=== PATIENT | female | born 1960 | race African-American/Black ===

== ENCOUNTER 2017-09-07 15:44 | Inpatient (IN) | payer OTHER, MEDICAID ==
[~2017-09-07] VITALS: Ht 175.3 cm; Wt 204.1 kg
[~2017-09-07 15:44] MED LIST: ATENOLOL100 MG PO; CIPRO500 MG PO; DULERA 100 MCG/13 GM IH; IBUPROFEN800 MG ORAL; METFORMIN HCL500 MG PO; NORCO 5-325 TA1 EACH ORAL; QUETIAPINE FUM100 MG ORAL; VENTOLIN HFA18 GM IH; VICODIN 5-5001 EACH PO
[2017-09-07] MEDS ORDERED: TERBINAFINE HC250 MG PO (15:50)
[2017-09-07] MEDS ORDERED: FLOVENT2 PUFF1 INH (15:50)
[2017-09-07] MEDS ORDERED: CATAPRES0.1 MG ORAL (15:50)
--- NOTE | 2017-09-07 15:53 | Emergency Room Report ---
History of Present Illness General Chief Complaint: Chest pain Source: Patient Present Illness HPI Patient is a 57-year-old female presented after increased blood pressure and associated shortness of breath. Patient reported having prior history of hypertension for which she takes clonidine and atenolol. Patient reported having taken additional dose of her medications. Allergies: Coded Allergies: PENICILLINS (Verified Allergy, Severe, ITCHY, 04/25/12) Patient History Past Medical History: see triage record Reviewed Nursing Documentation: PMH: Agreed, PSxH: Agreed Nursing Documentation-PMH Hx Cardiac Problems: Yes Hx Hypertension: Yes Hx Asthma: Yes Hx COPD: Yes Hx Diabetes: Yes Hx Cancer: No Hx Gastrointestinal Problems: No Hx Weakness: Yes - BILAT LOWER EXTS Review of Systems All Other Systems: negative except mentioned in HPI Physical Exam Sp02 EP Interpretation: reviewed, normal General Appearance: normal inspection, well appearing, no apparent distress, alert, GCS 15, non-toxic, obese, Chronically Ill Head: atraumatic ENT: normal ENT inspection, hearing grossly normal, normal voice Neck: normal inspection, full range of motion, supple, no bony tend Respiratory: normal inspection, lungs clear, no retraction, no wheezing Cardiovascular #1: regular rate, rhythm, edema Gastrointestinal: normal inspection, soft, no guarding, hernia - ventral hernia Genitourinary: no CVA tenderness, other - left labial swelling without definite absces Musculoskeletal: normal inspection, back normal, normal range of motion Neurologic: normal inspection, alert, responsive, speech normal Psychiatric: normal inspection, judgement/insight normal, mood/affect normal Medical Decision Making Diagnostic Impression: Primary Impression: Chest pain Additional Impressions: Uncontrolled hypertension Labial cyst ACS (acute coronary syndrome) ER Course Patient presented for chest pain. Because of complexity of patient's case laboratory testing and imaging studies were ordered. Differential diagnosis included but was not limited to acute coronary syndrome, pulmonary embolism, pneumonia, aortic dissection, shingles, pneumothorax, aortic dissection, esophageal rupture, pericarditis. EKG interpreted by me showed sinus tachycardia with a rate of [address] or T wave changes.Patient was noted to have some pain to her left labial area which appears to be mildly swollen.. Patient was noted to have chronic abdominal hernia. Dr. Leonidas Hughes was contacted for inpatient management. Labs Test 09/07/17 16:00 09/07/17 16:10 White Blood Count 7.5 K/UL (4.8-10.8) Red Blood Count 4.66 M/UL (4.20-5.40) Hemoglobin 13.8 G/DL (12.0-16.0) Hematocrit 42.4 % (37.0-47.0) Mean Corpuscular Volume 91 FL (80-99) Mean Corpuscular Hemoglobin 29.5 PG (27.0-31.0) Mean Corpuscular Hemoglobin Concent 32.5 G/DL (32.0-36.0) Red Cell Distribution Width 13.4 % (11.6-14.8) Platelet Count 184 K/UL (150-450) Mean Platelet Volume 9.0 FL (6.5-10.1) Neutrophils (%) (Auto) 72.8 % (45.0-75.0) Lymphocytes (%) (Auto) 22.5 % (20.0-45.0) Monocytes (%) (Auto) 2.9 % (1.0-10.0) Eosinophils (%) (Auto) 0.8 % (0.0-3.0) Basophils (%) (Auto) 1.0 % (0.0-2.0) Prothrombin Time 9.9 SEC (9.30-11.50) Prothromb Time International Ratio 0.9 (0.9-1.1) Activated Partial Thromboplast Time 21 SEC (23-33) Sodium Level 141 MMOL/L (136-145) Potassium Level 3.8 MMOL/L (3.5-5.1) Chloride Level 103 MMOL/L (98-107) Carbon Dioxide Level 33 MMOL/L (21-32) Anion Gap 5 mmol/L (5-15) Blood Urea Nitrogen 9 mg/dL (7-18) Creatinine 0.7 MG/DL (0.55-1.30) Estimat Glomerular Filtration Rate > 60 mL/min (>60) Glucose Level 224 MG/DL (74-106) Calcium Level 9.5 MG/DL (8.5-10.1) Total Bilirubin 0.4 MG/DL (0.2-1.0) Aspartate Amino Transf (AST/SGOT) 23 U/L (15-37) Alanine Aminotransferase (ALT/SGPT) 28 U/L (12-78) Alkaline Phosphatase 130 U/L (46-116) Troponin I 0.000 ng/mL (0.000-0.056) Total Protein 7.8 G/DL (6.4-8.2) Albumin 3.3 G/DL (3.4-5.0) Globulin 4.5 g/dL Albumin/Globulin Ratio 0.7 (1.0-2.7) Urine Color Pale yellow Urine Appearance Slightly cloudy Urine pH 8 (4.5-8.0) Urine Specific [place] 1.010 (1.005-1.035) Urine Protein 2+ (NEGATIVE) Urine Glucose (UA) Negative (NEGATIVE) Urine Ketones Negative (NEGATIVE) Urine Occult Blood 2+ (NEGATIVE) Urine Nitrite Negative (NEGATIVE) Urine Bilirubin Negative (NEGATIVE) Urine Urobilinogen Normal MG/DL (0.0-1.0) Urine Leukocyte Esterase 2+ (NEGATIVE) Urine RBC 2-4 /HPF (0 - 2) Urine WBC 5-10 /HPF (0 - 2) Urine Squamous Epithelial Cells Few /LPF (NONE/OCC) Urine Amorphous Sediment Few /LPF (NONE) Urine Bacteria Many /HPF (NONE) EKG Diagnostic Results Rate: tachycardiac - 116 Rhythm: NSR ST Segments: no acute changes Rhythm Strip Diag. Results EP Interpretation: yes Rhythm: NSR, no PVC's, no ectopy Status: unchanged Disposition: ADMITTED INPATIENT Condition: Colin Gamino Sep 07, 2017 15:53
[2017-09-07] MEDS ORDERED: Norco 5mg/325mg tab ORAL ONE (16:00)
[2017-09-07 16:29] LABS: EOSINOPHILS % (AUTO) 0.8 % (0.0-3.0); HEMATOCRIT 42.4 % (37.0-47.0); HEMOGLOBIN 13.8 G/DL (12.0-16.0); LYMPHOCYTES % (AUTO) 22.5 % (20.0-45.0); MEAN CORPUSCULAR VOLUME 91 FL (80-99); MONOCYTES % (AUTO) 2.9 % (1.0-10.0); NEUTROPHILS % (AUTO) 72.8 % (45.0-75.0); PLATELET COUNT 184 K/UL (150-450); RED BLOOD COUNT 4.66 M/UL (4.20-5.40); RED CELL DISTRIBUTION WIDTH 13.4 % (11.6-14.8); WHITE BLOOD COUNT 7.5 K/UL (4.8-10.8)
[2017-09-07 16:33] VITALS: BP 160/107
[2017-09-07 16:50] LABS: INR 0.9 (0.9-1.1)
[2017-09-07 16:56] LABS: APPEARANCE,URINE SLIGHTLY CLOUDY; BILIRUBIN, URINE NEGATIVE (NEGATIVE); COLOR,URINE PALE YELLOW; GLUCOSE, URINE (UA) NEGATIVE (NEGATIVE); KETONES,URINE NEGATIVE (NEGATIVE); LEUKOCYTE ESTERASE ,URINE 2+ (NEGATIVE); NITRITE,URINE NEGATIVE (NEGATIVE); PH,URINE 8 (4.5-8.0); PROTEIN,URINE 2+ (NEGATIVE); UROBILINOGEN,URINE NORMAL MG/DL (0.0-1.0)
[2017-09-07 17:02] LABS: ANION GAP 5 mmol/L (5-15); BLOOD UREA NITROGEN 9 mg/dL (7-18); CALCIUM 9.5 MG/DL (8.5-10.1); CARBON DIOXIDE 33 MMOL/L (21-32); CHLORIDE 103 MMOL/L (98-107); CREATININE 0.7 MG/DL (0.55-1.30); POTASSIUM 3.8 MMOL/L (3.5-5.1); SODIUM 141 MMOL/L (136-145)
[2017-09-07 17:09] LABS: ALANINE AMINOTRANSFERASE 28 U/L (12-78); ALBUMIN 3.3 G/DL (3.4-5.0); ALBUMIN/GLOBULIN RATIO 0.7 (1.0-2.7); ALKALINE PHOSPHATASE 130 U/L (46-116); ASPARTATE AMINO TRANSFERASE 23 U/L (15-37); BILIRUBIN,TOTAL 0.4 MG/DL (0.2-1.0)
[2017-09-07] MEDS ORDERED: PROAIR HFA8.5 GM INH (17:28)
[2017-09-07] MEDS ORDERED: AZO URINARY P97.5 MG PO (17:31)
[2017-09-07 17:39] VITALS: BP 158/91
[2017-09-07] MEDS ORDERED: TRIAMCINOLONE A80 GM TP (17:43)
[2017-09-07] MEDS ORDERED: NORCO 10-325 T1 EACH ORAL (17:45)
[2017-09-07] MEDS ORDERED: Aspirin Baby 81mg ORAL ONE (19:00)
[2017-09-07 19:33] VITALS: BP 135/77
[2017-09-07 20:46] VITALS: BP 157/99
[2017-09-07 22:17] VITALS: BP 166/96
[2017-09-07] MEDS ORDERED: Morphine Sulfate 2mg/ml Inj IVP ONE (23:00)
[2017-09-08] VITALS: BP 146/97
[2017-09-08] MEDS ORDERED: Triamcinolone 0.025% oint TOPIC SCH (03:30)
[2017-09-08 04:00] VITALS: BP 140/78
[2017-09-08 08:00] VITALS: BP 142/90
[2017-09-08] MEDS: metFORMIN 500mg tab ORAL SCH ×2 (08:47→17:05)
[2017-09-08] MEDS: Aspirin Baby 81mg ORAL SCH (08:47)
[2017-09-08 09:20] LABS: ALANINE AMINOTRANSFERASE 31 U/L (12-78); ALBUMIN 3.4 G/DL (3.4-5.0); ALBUMIN/GLOBULIN RATIO 0.8 (1.0-2.7); ALKALINE PHOSPHATASE 143 U/L (46-116); ANION GAP 8 mmol/L (5-15); ASPARTATE AMINO TRANSFERASE 18 U/L (15-37); BILIRUBIN,TOTAL 0.3 MG/DL (0.2-1.0); BLOOD UREA NITROGEN 15 mg/dL (7-18); CALCIUM 9.6 MG/DL (8.5-10.1); CARBON DIOXIDE 31 MMOL/L (21-32); CHLORIDE 102 MMOL/L (98-107); CHOLESTEROL 190 MG/DL (< 200); CREATININE 0.9 MG/DL (0.55-1.30); HDL CHOLESTEROL 75 MG/DL (40-60); POTASSIUM 4.1 MMOL/L (3.5-5.1); SODIUM 141 MMOL/L (136-145); TRIGLYCERIDES 99 MG/DL (30-150)
[2017-09-08 09:26] LABS: BASOPHILS % (AUTO) 1.2 % (0.0-2.0); EOSINOPHILS % (AUTO) 0.9 % (0.0-3.0); HEMOGLOBIN 13.6 G/DL (12.0-16.0); LYMPHOCYTES % (AUTO) 35.5 % (20.0-45.0); MEAN CORPUSCULAR VOLUME 93 FL (80-99); MONOCYTES % (AUTO) 4.3 % (1.0-10.0); NEUTROPHILS % (AUTO) 58.1 % (45.0-75.0); PLATELET COUNT 219 K/UL (150-450); RED BLOOD COUNT 4.73 M/UL (4.20-5.40); RED CELL DISTRIBUTION WIDTH 13.8 % (11.6-14.8); WHITE BLOOD COUNT 9.1 K/UL (4.8-10.8)
--- NOTE | 2017-09-08 10:17 | Diagnostic Imaging Report ---
Indication: Shortness of breath Technique: XRAY Chest 1v Comparison: 02/21/2014 Findings: There is poor penetration and inspiration limiting evaluation. Cardiac silhouette is grossly stable. Mild central pulmonary vascular congestion is seen. There is no gross consolidation or pleural effusion. Osseous structures are grossly stable. Impression: Poor penetration and inspiration limiting evaluation. Bronchovascular crowding with mild pulmonary congestion not excluded. Follow-up recommended.
[2017-09-08] MEDS: HYDROcodone/Acetamin 10/325 tab ORAL PRN ×2 (10:39→22:17)
[2017-09-08] MEDS: NovoLOG Insulin Flexpen SUBQ SCH ×3 (11:40→22:21)
[2017-09-08] MEDS: Flovent 44mcg Inhaler 10.6gm INH SCH ×2 (15:50→18:00)
[2017-09-08 16:00] VITALS: BP 144/88
--- NOTE | 2017-09-08 16:09 | Cardiology Report ---
APPROVED REPORT EKG Measurement Heart [id number] Sinus tachycardia RV conduction delay Abnormal ECG
[2017-09-08] MEDS: Heparin 5000 units/ml inj SUBQ SCH ×2 (16:22→22:21)
[2017-09-08 20:00] VITALS: BP 135/74
--- NOTE | 2017-09-08 20:00 | History and Physical Report ---
DATE OF ADMISSION: 09/07/2017 REASON FOR ADMISSION: Possible acute coronary syndrome. HISTORY OF PRESENT ILLNESS: This 57-year-old female presents with elevated blood pressure and shortness of breath. The patient with history of hypertension in the past. The patient presents for evaluation and recommendations. The patient with now admission for possible acute coronary syndrome and uncontrolled hypertension. PAST MEDICAL HISTORY: Notable for the history of heart disease although unclear, hypertension, possible AL, COPD, and diabetes. MEDICATIONS: Reviewed. ALLERGIES: Reviewed. PHYSICAL EXAMINATION: GENERAL: A well-developed female, comfortable at present. VITAL SIGNS: Reviewed. Blood pressure 142/90, otherwise stable. LUNGS: With moderate breath sounds. No rhonchi or wheezes. CARDIAC: S1 and S2. Regular rate and rhythm. ABDOMEN: Soft and nontender. EXTREMITIES: No edema. IMPRESSION: 1. Possible acute coronary syndrome. 2. Hypertension. RECOMMENDATION: Supportive care. Monitor clinically. Cardiac evaluation. Pain control and serial troponins. Blood pressure support and if stable, we will proceed with discharge planning. Leonidas Hughes M.D. DR: Luis JOB#: [id number] CC:
--- NOTE | 2017-09-09 03:45 | Progress Note ---
DATE: 09/08/2017 CARDIOLOGY PROGRESS NOTE SUBJECTIVE: The patient has no chest pain. She still feels a fullness in her abdominal and lower chest cavities however and notes this is consistent with her hiatal hernia. She has no shortness of breath. Today, her troponin levels have been negative. OBJECTIVE: VITAL SIGNS: Blood pressure 135/74, pulse 79, respiratory rate 20, and afebrile. Morbidly obese. LUNGS: Diminished breath sounds. No chest wall tenderness. CARDIAC: Regular rate with normal S1, S2. No murmur. ABDOMEN: Soft. EXTREMITIES: Without pitting edema. LABORATORY AND DIAGNOSTIC DATA: Echocardiogram with normal ejection fraction. White count 9. LDL is 102, HDL 75. Glucose 224. IMPRESSION: 1. Noncardiac chest pain, likely gastrointestinal related symptoms. 2. Morbid obesity. 3. Type 2 diabetes mellitus. 4. Accelerated hypertension, now controlled. PLAN: 1. Continue titration of antihypertensives. 2. Optimize glucose control. 3. DVT prophylaxis. 4. Antiplatelet therapy. The patient is unable to undergo any diagnostic stress testing due to her severe obesity. Rafi Singh M.D. DR: CHRISTIANO JOB#: [id number] CC:
[2017-09-09 04:00] VITALS: BP 126/64
--- NOTE | 2017-09-09 04:00 | Consultation ---
DATE OF CONSULTATION: 09/07/2017 CARDIOLOGY CONSULTATION CONSULTING PHYSICIAN: Rafi Singh M.D. REQUESTING PHYSICIAN: Leonidas Hughes M.D. REASON FOR CONSULTATION: Chest pain. HISTORY OF PRESENT ILLNESS: This is a 57-year-old morbidly obese female. She noted increased blood pressure readings today despite compliance with her usual medications. She took extra doses of her clonidine and atenolol as well. She noted some shortness of breath and came to the emergency room. She did not have chest pain. In the emergency room, EKG revealed low voltage, sinus rhythm, and no acute pathology. Troponin #1 was negative. PAST MEDICAL HISTORY: She has asthma, chronic obstructive pulmonary disease, type 2 diabetes mellitus, and hiatal hernia. MEDICATIONS: Prior to admission, reviewed and reconciled. ALLERGIES: Penicillin. SOCIAL HISTORY: Nonsmoker. No alcohol or substance abuse. REVIEW OF SYSTEMS: She complains of a boil in her left groin area. There is no history of thyroid disorder. There is no history of seizure or stroke. She has not had any increased reflux symptoms, but does have chronic discomfort due to hiatal hernia. She notes compliance with her medications and no usual blood pressure irregularities. She has not had any wheezing, shortness of breath, or recent upper respiratory infection. PHYSICAL EXAMINATION: GENERAL: Morbidly obese. VITAL SIGNS: Blood pressure is 160/107, pulse 90, respiratory rate 22, afebrile, and oxygen saturation 96% on two liters. HEENT: Conjunctivae are pink. Oropharynx is clear. NECK: Obese. LUNGS: Diminished breath sounds. CHEST WALL: With pendulous breasts. No focal tenderness. CARDIAC: Regular rhythm and rate. Distant S1 and S2. No murmur, rub, or gallop. ABDOMEN: Obese and no focal tenderness. EXTREMITIES: With trace edema. NEUROLOGIC: Revealed no focal deficits. DIAGNOSTIC DATA: EKG, sinus rhythm, low voltage, no acute change. Troponin negative. IMPRESSION: 1. Accelerated hypertension. 2. Chest pain, likely due to gastrointestinal pathology, probably related to her hiatal hernia. 3. Morbid obesity. PLAN: 1. Cardiac monitoring. 2. Antiplatelet therapy with aspirin. 3. Venous Duplex to assess for source of pulmonary emboli. 4. DVT prophylaxis. 5. Anti-reflux measures and proton-pump inhibitor. 6. Titration of antihypertensive regimen for optimal blood pressure control. The patient's body habitus and weight stress test to be successfully performed at this time. Rafi Singh M.D. DR: Nba JOB#: [id number] CC:
[2017-09-09] MEDS: NovoLOG Insulin Flexpen SUBQ SCH ×3 (06:08→16:30)
[2017-09-09] MEDS: Heparin 5000 units/ml inj SUBQ SCH ×2 (06:09→14:06)
[2017-09-09 08:00] VITALS: BP 154/71
[2017-09-09] MEDS: Aspirin Baby 81mg ORAL SCH (09:12)
[2017-09-09] MEDS: metFORMIN 500mg tab ORAL SCH (09:12)
--- NOTE | 2017-09-09 09:31 | Wound Nurse Progress Note ---
Wound RN Progress Note Wound Consult follow MD orders recommendation for vaginal area. not pressure ulcer , no further recommendations CHAYO CHOWDHURY Sep 09, 2017 09:31
[2017-09-09] MEDS: HYDROcodone/Acetamin 10/325 tab ORAL PRN (11:01)
--- NOTE | 2017-09-09 11:35 | General Progress Note ---
Assessment/Plan Assessment/Plan hypertension obesity hypercapnia PLAN dc home cleared by cards aspirin at home not an oxygen candidate sleep study recommended after dc no further needs by wound care nurse Subjective Allergies: Coded Allergies: PENICILLINS (Verified Allergy, Severe, ITCHY, 04/25/12) Subjective cleared by cards no oxygen indicated Objective Last 24 Hour Vital Signs Date Time Temp Pulse Resp B/P (MAP) Pulse Ox O2 Delivery O2 Flow Rate FiO2 09/09/17 11:01 98.1 09/09/17 09:12 91 154/71 09/09/17 08:49 Nasal Cannula 2.0 09/09/17 08:48 98 Nasal Cannula 2.0 09/09/17 08:00 98.1 91 20 154/71 94 Nasal Cannula 2.0 98.1 09/09/17 04:00 97.2 84 20 126/64 96 Nasal Cannula 2.0 97.2 09/08/17 23:59 99 Nasal Cannula 4.0 36 09/08/17 23:59 Nasal Cannula 4.0 36 09/08/17 21:00 118/68 09/08/17 20:00 97.5 79 20 135/74 94 Nasal Cannula 2.0 97.5 09/08/17 19:02 Nasal Cannula 4.0 36 09/08/17 19:02 Nasal Cannula 4.0 36 09/08/17 16:00 97.7 73 18 144/88 98 Nasal Cannula 2.0 97.7 09/08/17 15:54 80 09/08/17 11:47 67 09/08/17 11:38 97.7 Intake and Output 09/08/17 09/09/17 19:00 07:00 Intake Total 580 ml 200 ml Balance 580 ml 200 ml Intake Oral 580 ml 200 ml # Voids 3 Laboratory Tests 09/09/17 11:05: Arterial Blood pH 7.330L, Arterial Blood Partial Pressure CO2 63.1*H, Arterial Blood Partial Pressure O2 91.6, Arterial Blood HCO3 33.2H, Arterial Blood Oxygen Saturation 96.8, Arterial Blood Base Excess 5.6, Ha Test Positive Height (Feet): 5 Height (Inches): 9.00 Weight (Pounds): 450 Objective WDWN NAD clear breath sounds bilaterally without rhonchi or wheeze [id number] without MRG NABS nontender no HSM no CC edema obese nonfocal ISHAAYA,SHILO Sep 09, 2017 11:35
[2017-09-09] MEDS: Flovent 44mcg Inhaler 10.6gm INH SCH (11:36)
[2017-09-09 12:00] VITALS: BP 150/84
[2017-09-09] MEDS ORDERED: Triamcinolone 0.025% oint TOPIC SCH (14:00)
[2017-09-09] MEDS ORDERED: ASPIR-LOW81 MG ORAL (14:30)
[2017-09-09] MEDS ORDERED: Tubing IV Secondary IV ONE (16:57)
--- NOTE | 2017-09-10 03:45 | Progress Note ---
DATE: 09/09/2017 CARDIOLOGY PROGRESS NOTE SUBJECTIVE: No new complaints. Fullness in the chest at times, not associated with activity, consistent with prior discomfort due to hiatal hernia. OBJECTIVE: VITAL SIGNS: Blood pressure 154/71 is the maximal blood pressure with heart rate 91 and respiratory rate 20. LUNGS: Diminished breath sounds. HEART: Regular rhythm and rate. Distant S1 and S2. ABDOMEN: Morbidly obese. EXTREMITIES: Without pitting edema. IMPRESSION: 1. Hypertension. 2. Morbid obesity. 3. Chronic hypercapnia. PLAN: 1. Unable to do any diagnostic stress testing due to body habitus. 2. Would continue aspirin prophylaxis long-term. 3. Weight loss efforts are discussed. 4. Maintain current antihypertensive regimen. 5. The patient is at risk for DVT and is advised to maintain adequate mobilization at home. Rafi Singh M.D. DR: JONAS JOB#: [id number] CC:
[2017-09-10] MEDS ORDERED: Flovent 44mcg Inhaler 10.6gm INH SCH (10:00)
--- NOTE | 2017-09-11 15:12 | Discharge Summary ---
Discharge Summary Hospital Course Date of Admission Sep 07, 2017 at 22:08 Date of Discharge Sep 09, 2017 at 16:58 Admitting Diagnosis chest pain, acs, uncontrolled hypertension HPI Leonor Real is a 57 year old female who was admitted on Sep 07, 2017 at 22:08 for Chest Pain,Acute Coronary Syndrome,Uncontrolled Hospital Course dc summary #[id number] Discharge Discharge Disposition Patient was discharged to Home (01) Discharge Diagnoses: Discharge Instructions Discharge Instructions Special Instructions I have been assigned to complete a D/C Summary on this account. I was not involved in the patient management Angelica Nunn NP ([place]) Sep 11, 2017 15:12
--- NOTE | 2017-09-11 22:15 | Discharge Summary 2 SIG ---
DATE OF ADMISSION: 09/07/2017 DATE OF DISCHARGE: 09/09/2017 REASON FOR ADMISSION: 57-year-old female with past medical history significant for hypertension, asthma/COPD, obesity, osteoarthritis, diabetes mellitus, presented to emergency room for evaluation with increased blood pressure and associated shortness of breath with chest pain. Blood pressure -173/124. No leukocytosis. Stable hemoglobin and hematocrit. Troponin negative. Electrolytes stable. Renal parameters stable. EKG revealed sinus tachycardia, heart rate -116, no acute ischemic changes. The patient admitted with diagnoses of uncontrolled hypertension, chest pain, possible acute coronary syndrome. HOSPITAL COURSE: The patient admitted. Cardiology consult was requested. Serial troponin x2 were negative. Antiplatelet therapy with aspirin started. Echocardiogram revealed ejection fraction of 65%, right ventricular systolic pressure of 20. Chest x-ray initially revealed mild pulmonary congestion. ABGs revealed chronic hypercapnia. Lipid panel was stable. LDL borderline - 102. Cardiology discussed with the patient measures to lose weight. Antihypertensive medication regimen was uptitrated. Prior to discharge, blood pressure stabilized. Due to the morbid obesity, unable to do any diagnostic stress test at this time. Per Cardiology, chest pain was likely secondary to GI pathology , i.e. hiatal hernia. PPI added to medication regimen. The patient was advised that she is at risk for DVT and was advised to maintain adequate mobilization at home. Prior to discharge pulse oximetry was stable on room air. The patient was not a candidate for home O2 . Patient was recommended sleep study as an outpatient. Blood sugar was managed with sliding scale of insulin, remained stable. The patient was stable for discharge. FINAL DIAGNOSES: 1. Accelerated hypertension, resolved. 2. Chest pain, likely secondary to GI pathology( hiatal hernia) . 3. Hiatal hernia. 4. Morbid obesity. 5. Chronic hypercapnia. DISCHARGE MEDICATIONS: See medication reconciliation list. DISCHARGE INSTRUCTIONS: The patient discharged home. Follow up with primary care provider next week. Recommended outpatient sleep study. Consider stress test as outpatient Leonidas Hughes M.D. I have been assigned to dictate discharge summary on this account and I was not involved in the patient's management. Angelica Nunn N.P. ([place]tein) DR: Gumaro JOB#: [id number] CC: EVELINE
--- NOTE | 2017-09-12 21:22 | Cardiology Report ---
APPROVED REPORT EXAM: Two-dimensional and M-mode echocardiogram with Doppler and color Doppler. INDICATION Chest Pain M-Mode DIMENSIONS IVSd1.5 (0.7-1.1cm)Left Atrium (MM)3.7 (1.6-4.0cm) LVDd5.7 (3.5-5.6cm)Aortic Root3.9 (2.0-3.7cm) PWd1.3 (0.7-1.1cm)Aortic Cusp Exc.2.1 (1.5-2.0cm) IVSs1.8 cm LVDs3.5 (2.5-4.0cm) PWs2.1 cm Technically difficult study due to poor acoustical windows and pts position. . Normal left ventricular systolic function and wall motion to extent visualized. Mild left ventricular enlargements . Left ventricular ejection fraction estimated to be 65 %. Mild left ventricular hypertrophy by 2-D. No evidence of pericardial effusion. Right cardiac chamber sizes are within normal limits. Focal aortic valve sclerosis with adequate cusp excursion. Mildly Thickened mitral valve leaflets with normal excursion. Mildly Mitral annulus and aortic root calcification. Pulmonic valve not well visualized. Normal tricuspid valve structure. IVC at normal size with physiological collapse . A color flow and spectral Doppler study was performed and revealed: No aortic regurgitation. Trace mitral regurgitation. Mitral diastolic velocities suggest reduced left ventricular relaxation c/w mild LV diastolic dysfunction (Grade I ) Trace tricuspid regurgitation. Tricuspid systolic velocities suggests peak right ventricular systolic pressure of 20 mmHg No Pulmonic regurgitation present.
== END 2017-09-09 16:58 | disposition home or self-care (01) | DRG 392 ==
LOC: EMR 16:30 → EDBEDREQ 20:27 → 2E 22:08 → 4W 09-09 14:15 → 2E 09-09 16:56
DX: K44.9 Diaphragmatic hernia without obstruction or gangrene (principal); Z68.44 Body mass index [BMI] 60.0-69.9, adult; I10 Essential (primary) hypertension; E66.01 Morbid (severe) obesity due to excess calories; R07.89 Other chest pain; J44.9 Chronic obstructive pulmonary disease, unspecified; E11.9 Type 2 diabetes mellitus without complications; M19.90 Unspecified osteoarthritis, unspecified site; R06.89 Other abnormalities of breathing; Z88.0 Allergy status to penicillin
CPT/HCPCS: 36415; 36600; 71045; 80053; 80061; 81001; 82803; 82962; 84443; 84484; 85025; 85610; 85730; 87086; 87181; 93005; 93306; 94640; 94760; 99285; J1815

== ENCOUNTER 2017-11-13 21:42 | Inpatient (IN) | payer OTHER, MEDICAID ==
[~2017-11-13] VITALS: Ht 177.8 cm; Wt 229.5 kg
[~2017-11-13 21:42] MED LIST changes: +ASPIR-LOW81 MG ORAL; +AZO URINARY P97.5 MG PO; +CATAPRES0.1 MG ORAL; +FLOVENT2 PUFF1 INH; +NORCO 10-325 T1 EACH ORAL; +PROAIR HFA8.5 GM INH; +TERBINAFINE HC250 MG PO; +TRIAMCINOLONE A80 GM TP
[2017-11-13] MEDS ORDERED: Ketorolac 30mg Inj IM ONE (22:15)
[2017-11-13] MEDS ORDERED: Norco 5mg/325mg tab ORAL ONE (22:15)
[2017-11-14] VITALS (7 sets, daily range): BP systolic 121–159; BP diastolic 18–105
[2017-11-14] MEDS ORDERED: Morphine Sulfate 4mg/ml Inj IM ONE
[2017-11-14 01:29] LABS: EOSINOPHILS % (AUTO) 1.4 % (0.0-3.0); HEMATOCRIT 44.8 % (37.0-47.0); HEMOGLOBIN 13.9 G/DL (12.0-16.0); LYMPHOCYTES % (AUTO) 29.1 % (20.0-45.0); MEAN CORPUSCULAR VOLUME 90 FL (80-99); MONOCYTES % (AUTO) 2.9 % (1.0-10.0); NEUTROPHILS % (AUTO) 65.6 % (45.0-75.0); PLATELET COUNT 226 K/UL (150-450); RED BLOOD COUNT 4.98 M/UL (4.20-5.40); RED CELL DISTRIBUTION WIDTH 12.7 % (11.6-14.8); WHITE BLOOD COUNT 7.8 K/UL (4.8-10.8)
[2017-11-14 01:35] LABS: ANION GAP 9 mmol/L (5-15); BLOOD UREA NITROGEN 12 mg/dL (7-18); CALCIUM 9.5 MG/DL (8.5-10.1); CARBON DIOXIDE 31 MMOL/L (21-32); CHLORIDE 100 MMOL/L (98-107); CREATININE 0.9 MG/DL (0.55-1.30); POTASSIUM 4.7 MMOL/L (3.5-5.1); SODIUM 140 MMOL/L (136-145)
--- NOTE | 2017-11-14 03:56 | Emergency Room Report ---
History of Present Illness General Chief Complaint: Lower Extremity Injury Source: Patient Present Illness HPI 57-year-old female comes ER with left leg pain for the past 4 days reports it's a spasm type pain radiating from the buttock down her left leg for the past 4 days, she has no obvious history of trauma other than a fall about 5 months ago She reports at that time she had right-sided pain, none since She denies leg swelling, denies hemoptysis, anticoagulate and actually the pain , and now reports she is unable to walk on it because it is so severe She tried [place] with only partial relief She denies chest pain, palpitations, shortness of breath, estrogen use, recent travel Allergies: Coded Allergies: PENICILLINS (Verified Allergy, Severe, ITCHY, 04/25/12) Patient History Past Medical History: see triage record Last Menstrual Period: NA Now: No Reviewed Nursing Documentation: PMH: Agreed; PSxH: Agreed Nursing Documentation-PMH Hx Cardiac Problems: Yes Hx Hypertension: Yes Hx Asthma: Yes Hx COPD: Yes Hx Diabetes: Yes Hx Cancer: No Hx Gastrointestinal Problems: Yes - abdominal hernia Hx Neurological Problems: No Hx Weakness: Yes - BILAT LOWER EXTS Review of Systems All Other Systems: negative except mentioned in HPI Physical Exam Vital Signs Date Time Temp Pulse Resp B/P (MAP) Pulse Ox O2 Delivery O2 Flow Rate FiO2 11/13/17 21:43 98.9 88 18 142/93 92 Room Air 99.0 Sp02 EP Interpretation: reviewed, normal General Appearance: no apparent distress, alert, non-toxic Head: normocephalic Eyes: bilateral eye normal inspection, bilateral eye PERRL, bilateral eye EOMI ENT: normal ENT inspection, hearing grossly normal, normal pharynx, no angioedema, normal voice, moist mucus membranes Neck: normal inspection, full range of motion, supple, supple/symm/no masses Respiratory: chest non-tender, lungs clear, normal breath sounds, chest symmetrical, palpation of chest normal Cardiovascular #1: normal peripheral pulses, regular rate, rhythm Cardiovascular #2: 2+ radial (R), 2+ radial (L), 2+ dorsalis pedis (R), 2+ dorsalis pedis (L) Gastrointestinal: normal inspection, non tender, soft, no mass, no guarding, no rebound Rectal: deferred Genitourinary: normal inspection, no CVA tenderness Musculoskeletal: back normal, gait/station normal, normal range of motion, tender - LLE diffusely tender Neurologic: alert, responsive, treating inspector III-XII nml as tested, motor strength/tone normal, sensory intact, speech normal Psychiatric: judgement/insight normal, memory normal, mood/affect normal, no suicidal/homicidal ideation Skin: normal color, no rash, warm/dry, normal turgor Lymphatic: no adenopathy Medical Decision Making Diagnostic Impression: Primary Impression: Leg pain, left ER Course Patient had a normal x-ray of her left hip, clinical evaluation revealed just pain and tenderness everywhere, unable to rule out DVT due to body habitus, as the pain is not consistent with any obvious etiology other than possible sciatica versus DVT, I ordered a d-dimer which was elevated, and then was informed that this hospital does not perform imaging studies on patient's this large for DVT rule out due to size limitations. Therefore I have given her 1 dose of Lovenox, and we will admit her to , but he is not answered our pages were texts at the time of this dictation Last Vital Signs Date Time Temp Pulse Resp B/P (MAP) Pulse Ox O2 Delivery O2 Flow Rate FiO2 11/14/17 02:41 97.9 78 18 140/88 94 Room Air 97.9 Disposition: ADMITTED INPATIENT Condition: Stable Referrals: NON PHYSICIAN (PCP) SHELTON SAMS M.D November 14, 2017 03:56
[2017-11-14] MEDS ORDERED: Morphine Sulfate 4mg/ml Inj IVP ONE (05:00)
[2017-11-14] MEDS ORDERED: Enoxaparin 150mg Inj SUBQ SCH (09:00)
[2017-11-14] MEDS ORDERED: Aspirin Baby 81mg ORAL SCH (11:00)
[2017-11-14] MEDS: Morphine Sulfate 4mg/ml Inj IVP PRN ×2 (11:55→23:34)
[2017-11-14] MEDS: Albuterol/Ipratropium 3ml neb HHN SCH ×2 (13:00→20:26)
--- NOTE | 2017-11-14 13:08 | Diagnostic Imaging Report ---
Indication: Pain Technique: 2 views of the left hip Comparison: 07/21/2011 Findings: Evaluation is very limited due to patient body habitus. There are degenerative proliferative changes of the left hip. No definite acute fractures. No dislocations. Impression: Degenerative changes. No definite acute bony trauma
--- NOTE | 2017-11-14 15:55 | History and Physical ---
History of Present Illness General Date patient seen: November 14, 2017 Time patient seen: 12:00 Reason for Hospitalization: Lower Extremity Injury Present Illness HPI 57 y/o female with a PMH of morbid obesity, HTN, COPD from former smoking, T2DM presented to the ED after 4 days of severe left lower extremity pain, numbness, and tingling. Patient states that she hit her left buttocks against the bed frame and the next morning has had severe left lower extremity weakness, calf tenderness and radiculopathy. Patient states nothing has helped relieve the pain and states that she progressively had had difficulty walking. Denies chest pain, sob, n/v, abdominal pain. Denies urinary or bowel incontinence. Allergies: Coded Allergies: PENICILLINS (Verified Allergy, Severe, ITCHY, 04/25/12) Medication History Scheduled Aspirin* (Aspir-Low*), 81 MG ORAL DAILY, (Reported) Atenolol* (Tenormin*), 100 MG PO DAILY, (Reported) Clonidine Hcl* (Catapres*), 0.1 MG ORAL DAILY, (Reported) Fluticasone Propionate (Flovent Hfa), 2 PUFFS INH BID, (Reported) Metformin Hcl (Metformin Hcl), 500 MG PO BID, (Reported) Quetiapine Fumarate* (Seroquel*), 100 MG ORAL DAILY, (Reported) Terbinafine Hcl* (Lamisil*), 250 MG PO DAILY, (Reported) Scheduled PRN Albuterol Sulfate* (Proair Hfa*), 2 PUFFS INH Q6H PRN for Shortness of Breath, ( Reported) Hydrocodone Bit/Acetaminophen 10-325* ([place] 10-325*), 1 TAB ORAL Q6H PRN for For Pain, (Reported) Miscellaneous Medications Phenazopyridine HCl (Azo Urinary Pain Relief), Unknown Dose PO, (Reported) Triamcinolone Acetonide (Triamcinolone Acetonide), 4 OZ TP, (Reported) Patient History History Provided By: Patient, Medical Record Healthcare decision maker Resuscitation status Full Code Advanced Directive on File Review of Systems All Other Systems: negative except mentioned in HPI Physical Exam General Appearance: morbidly obese HEENT: normocephalic, atraumatic, PERRL, EOMI, supple Neck: non-tender, normal alignment, supple Respiratory/Chest: chest wall non-tender, lungs clear, normal breath sounds Cardiovascular/Chest: normal peripheral pulses, normal rate, regular rhythm Extremities: other Skin Exam: normal pigmentation, warm/dry 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 3-/5 strength to LLE and 4/5 strength to RLE Last 24 Hour Vital Signs Date Time Temp Pulse Resp B/P (MAP) Pulse Ox O2 Delivery O2 Flow Rate FiO2 11/14/17 11:55 88 156/18 11/14/17 08:00 98.0 88 18 156/18 92 Room Air 98.0 11/14/17 05:33 97.8 85 18 135/80 97 Room Air 97.8 11/14/17 05:25 97.9 11/14/17 02:41 97.9 78 18 140/88 94 Room Air 97.9 11/14/17 00:47 98.0 11/14/17 00:21 98.0 18 136/88 92 Room Air 98.0 11/14/17 00:17 37.2 11/13/17 23:21 37.2 11/13/17 23:21 98.9 11/13/17 22:24 98.9 11/13/17 22:23 98.9 11/13/17 21:43 98.9 88 18 142/93 92 Room Air 99.0 Intake and Output 11/13/17 11/14/17 19:00 07:00 Intake Total 0 ml Balance 0 ml Intake Oral 0 ml Laboratory Tests Test 11/14/17 01:15 White Blood Count 7.8 K/UL (4.8-10.8) Red Blood Count 4.98 M/UL (4.20-5.40) Hemoglobin 13.9 G/DL (12.0-16.0) Hematocrit 44.8 % (37.0-47.0) Mean Corpuscular Volume 90 FL (80-99) Mean Corpuscular Hemoglobin 27.9 PG (27.0-31.0) Mean Corpuscular Hemoglobin Concent 31.0 G/DL (32.0-36.0) L Red Cell Distribution Width 12.7 % (11.6-14.8) Platelet Count 226 K/UL (150-450) Mean Platelet Volume 7.9 FL (6.5-10.1) Neutrophils (%) (Auto) 65.6 % (45.0-75.0) Lymphocytes (%) (Auto) 29.1 % (20.0-45.0) Monocytes (%) (Auto) 2.9 % (1.0-10.0) Eosinophils (%) (Auto) 1.4 % (0.0-3.0) Basophils (%) (Auto) 1.0 % (0.0-2.0) D-Dimer 0.96 mg/L FEU (0.00-0.49) H Sodium Level 140 MMOL/L (136-145) Potassium Level 4.7 MMOL/L (3.5-5.1) Chloride Level 100 MMOL/L (98-107) Carbon Dioxide Level 31 MMOL/L (21-32) Anion Gap 9 mmol/L (5-15) Blood Urea Nitrogen 12 mg/dL (7-18) Creatinine 0.9 MG/DL (0.55-1.30) Estimat Glomerular Filtration Rate > 60 mL/min (>60) Glucose Level 206 MG/DL (74-106) H Calcium Level 9.5 MG/DL (8.5-10.1) Height (Feet): 5 Height (Inches): 10.00 Weight (Pounds): 506 Medications Current Medications Medications (Trade) Dose Ordered Sig/Arlen Route PRN Reason Start Time Stop Time Status Last Admin Dose Admin Acetaminophen (Tylenol) 650 mg Q4H PRN ORAL Mild Pain/Temp > 100.5 11/14/17 10:15 12/14/17 10:14 Acetaminophen/ Hydrocodone Bitart ([place] 10/325) 1 tab Q4H PRN ORAL Moderate Pain (Pain Scale 4-6) 11/14/17 13:00 11/21/17 12:59 Albuterol/ Ipratropium (Albuterol/ Ipratropium) 3 ml Q6HRT HHN 11/14/17 13:00 11/19/17 12:59 Aspirin (ASA) 81 mg DAILY ORAL 11/15/17 09:00 12/15/17 08:59 Atenolol (Tenormin) 100 mg DAILY ORAL 11/15/17 09:00 12/15/17 08:59 Dextrose (Dextrose 50%) 25 ml STAT PRN IV Hypoglycemia 5/17/18 12:30 12/14/17 12:29 Dextrose (Dextrose 50%) 50 ml STAT PRN IV Hypoglycemia 11/14/17 12:30 12/14/17 12:29 Fluticasone Propionate (Flovent 110 mcg) 2 puff TWICE A DAY INH 11/14/17 18:00 12/14/17 17:59 Heparin Sodium (Porcine) (Heparin 5000 units/ml) 5,000 units EVERY 12 HOURS SUBQ 11/14/17 21:00 12/14/17 20:59 Insulin Aspart (NovoLOG) BEFORE MEALS AND HS SUBQ 11/14/17 16:30 12/14/17 16:29 Morphine Sulfate (Morphine Sulfate) 4 mg Q4H PRN IVP Severe Pain (Pain Scale 7-10) 11/14/17 10:15 11/21/17 10:14 11/14/17 11:55 Quetiapine Fumarate (SEROquel) 100 mg DAILY ORAL 11/14/17 13:00 12/14/17 12:59 11/14/17 13:06 Sodium Chloride 1,000 ml @ 75 mls/hr [id number] IV 11/14/17 16:00 12/14/17 15:59 Terbinafine HCl (LamISIL) 250 mg DAILY ORAL 11/14/17 13:00 11/21/17 12:59 11/14/17 13:06 Assessment/Plan Problem List: (1) Sciatic leg pain ICD Codes: M54.30 - Sciatica, unspecified side SNOMED: 01556259 (2) COPD (chronic obstructive pulmonary disease) ICD Codes: J44.9 - Chronic obstructive pulmonary disease, unspecified SNOMED: 43855052 (3) Morbid obesity ICD Codes: E66.01 - Morbid (severe) obesity due to excess calories SNOMED: 155719565, 43339991783076 (4) HTN (hypertension) ICD Codes: I10 - HTN (hypertension) SNOMED: 27476033 (5) DM (diabetes mellitus) ICD Codes: E11.9 - DM (diabetes mellitus) SNOMED: 34881017 (6) Hip pain, left ICD Codes: M25.552 - Pain in left hip SNOMED: 06285267 (7) Leg pain, left ICD Codes: M79.605 - Pain in left leg SNOMED: 709791078 Status: stable Assessment/Plan Admit to inpatient Vascular surgery and hematology consulted D-dimer elevated. Patient unable to get venous duplex due to morbid obesity but clinically patient has severe calf tenderness and is at high risk for DVT development. Therefore, per hematology and vascular surgery rec's, will start patient on eliquis and schedule patient for outpatient venous duplex at [facility] that would accommodate patient's body habitus. Unable to get CT L spine due to patient's body habitus. Will also have CM schedule this as outpatient for patient at [facility]. Will start gabapentin for now. PT/OT eval Continue home BP meds DENNIS Pain control and supportive care DVT Prophylaxis: patient is currently on DVT treatment Code Status: Full Hospital Classification Declaration: Based on this initial evaluation, and depending on the patient's clinical course, I anticipate that this patient will require hospitalization for 2-3 days for LLE intractable pain and close respiratory/hemodynamic monitoring. Disposition: Once the patient is stable to leave the hospital, I anticipate the patient will likely be discharged to the following environment: home with HH vs SNF I spent 72 minutes on this patient's case, and 42 minutes were dedicated to counseling and/or care coordination. Discussed with patient/family, nursing staff, SW/CM, vascular surgery, hematology, regarding clinical status, treatment course, and disposition planning. Time of note may not reflect time of encounter. Araceli Victor NP November 14, 2017 15:55
[2017-11-14] MEDS: NovoLOG Insulin Flexpen SUBQ SCH ×2 (16:22→20:53)
[2017-11-14] MEDS: Flovent 110mcg Inhaler - 12gm INH SCH (17:07)
[2017-11-14] MEDS ORDERED: metFORMIN 500mg tab ORAL SCH (18:00)
[2017-11-14] MEDS ORDERED: Heparin 5000 units/ml inj SUBQ SCH (21:00)
[2017-11-15] MEDS: Albuterol/Ipratropium 3ml neb HHN SCH ×4 (01:38→19:42)
[2017-11-15 01:45] VITALS: BP 152/94
--- NOTE | 2017-11-15 01:45 | Consultation ---
DATE OF CONSULTATION: 11/14/2017 VASCULAR SURGERY CONSULTATION CONSULTING PHYSICIAN: Yann Guajardo M.D. REFERRING PHYSICIAN: 1. Faina Howard M.D. 2. Araceli Victor N.P. REASON FOR CONSULTATION: Leg pain, rule out deep venous thrombosis. HISTORY OF PRESENT ILLNESS: This is a 57-year-old morbidly obese, female who weighs over 500 pounds by report. Reportedly, the patient had fallen with left leg pain. The patient has a known history of sciatic and peripheral neuropathy by report with severe back pain. The patient has a severe left calf tenderness. Ultrasound was limited to visualize her veins due to superobesity and they were unable to perform any CT scans due to her weight over 500 pounds. Vascular Surgery is consulted for further evaluation. The patient is currently comfortable, does have severe orthopnea and COPD. PAST MEDICAL HISTORY: As above, history of former two-pack a day smoker, former drug abuse, morbid obesity over 500 pounds, hypertension, and diabetes not on any medication. MEDICATIONS: See attached MAR. ALLERGIES: She is allergic to penicillin. SOCIAL HISTORY: Currently denies history of smoking, drugs, or alcohol. FAMILY HISTORY: Unremarkable. REVIEW OF SYSTEMS: CARDIOVASCULAR: No history of chest pain or palpitation. PULMONARY: She does have shortness of breath at rest. GASTROINTESTINAL: No history of abdominal pain, constipation, or diarrhea. GENITOURINARY: No urinary symptoms. NEUROLOGIC: No history of strokes or seizures. PHYSICAL EXAMINATION: VITAL SIGNS: The patient is afebrile at 98 degrees, heart rate 88, blood pressure 156/80, and O2 saturation 92% on room air. GENERAL: She is morbidly obese. She is awake, in no significant distress. She has palpable radial pulses. LUNGS: Clear to auscultation. HEART: Regular rate and rhythm. ABDOMEN: Soft and nontender EXTREMITIES: Feet are warm. She does have left worse than right calf tenderness with minimal edema. There is no ulceration. Her feet are warm and well perfused. LABORATORY AND DIAGNOSTIC DATA: On admission revealed a WBC of 7.8, hemoglobin is 13.9, and platelet count 226. Sodium 140. D-dimer is elevated 0.96. Potassium is 4.7, chloride 100, CO2 31, BUN 12, creatinine is 0.9, and glucose was 206. IMPRESSION: 1. Severe left calf and leg tenderness with history of fall with a known history of sciatica, peripheral neuropathy, and back pain. 2. Super morbid obesity weighing over 500 pounds. 3. History of hypertension, diabetes, former heavy smoker, and drug abuse. PLAN AND RECOMMENDATION: She is at high deep venous thrombosis risk and with elevated D-dimer and severe left calf tenderness. We would treat her therapeutically with Lovenox or Eliquis, anticoagulation therapy. The patient will need outpatient lower extremity venous duplex and followup. The above was discussed at length with the patient and the nurse at bedside. Yann Guajardo M.D. DR: FREDY JOB#: [id number] CC: Yann Guajardo M.D.; Fax#: [phone] FAINA HOWARD M.D. ; FAX#: [phone] Kaleigh Kim
--- NOTE | 2017-11-15 03:00 | Consultation ---
DATE OF CONSULTATION: 11/14/2017 NOTE: POOR AUDIO HEMATOLOGY/ONCOLOGY CONSULTATION CONSULTING PHYSICIAN: Phani Bradford M.D. REFERRING PHYSICIANS: Faina Mcdowell M.D. and Anthony Hough M.D. REASON FOR CONSULTATION: Management of DVT. IDENTIFYING DATA: Dear Dr. Mcdowell, The patient is a pleasant 57-year-old female with past medical history significant for hypertension, asthma, COPD, diabetes mellitus, at this time presented to the hospital, to the ER, with left leg pain for the last several days been a spasm, radiating to her buttocks down the left leg for the last several days. No obvious history of trauma. No recent falls. she had right-sided pain. Denies any leg swelling or actual pain. Denies any hemoptysis. . Because the pain was so severe, she has tried using the [place] and relief noted. Duplex completed of lower extremity. No DVT specifically was noted, however, difficulty given body habitus. The patient has sciatica . Hematology/Oncology Service was consulted for further evaluation and underlying treatment for possibility of DVT. PAST MEDICAL HISTORY: As noted above, hypertension, asthma, abdominal hernia, and bilateral lower extremity weakness. PAST SURGICAL HISTORY: History of hernia repair. ALLERGIES: Penicillin. SOCIAL HISTORY: No alcohol, tobacco, or illicit drug use. FAMILY HISTORY: Noncontributory. REVIEW OF SYSTEMS: CONSTITUTIONAL: No fevers, chills, or night sweats. SKIN: No rashes, bumps, or itching. HEENT: No headaches, hearing or vision changes. BREASTS: No lumps, pain, or discharge. PULMONARY: No cough, sputum, or shortness of breath. GASTROINTESTINAL: No nausea, vomiting, or diarrhea. GENITOURINARY: No dysuria, frequency, or urgency. MUSCULOSKELETAL: No joint swelling, muscle pain, or trauma. PHYSICAL EXAMINATION: VITAL SIGNS: Reviewed. GENERAL: No distress. PULMONARY: Decreased breath sounds. Some crackles noted. CARDIOVASCULAR: Regular rate. No S3 or S4. ABDOMEN: Soft, nontender, and nondistended. EXTREMITIES: No cyanosis, swelling, or edema. LABORATORY DATA: D-dimer of 0.96. WBC 7.9, hemoglobin 13.9, and platelet count 226,000. BUN of 12 and creatinine 0.9. ASSESSMENT AND RECOMMENDATION: 1. Elevated D-dimer. It could be potentially false-positive, slightly elevated at this time, although negative D-dimer does exclude a deep venous thrombosis. It can be elevated in the setting of liver disease, inflammation, malignancy, trauma, , surgery. Therefore, at this time, discussed with primary physician potential of deep venous thrombosis. If deep venous thrombosis does exist, consider use of Lovenox. 2. Deep venous thrombosis with sciatica of lower extremity. Potentially consider use of Lovenox as needed. 3. Hyperglycemia. Blood sugar goal between 80 and 120. 4. Hypertension. She is on aspirin as well as blood pressure control. Continue to closely monitor. 5. Morbidly obese. 6. Accelerated hypertension. I appreciate the consultation. Phani Bradford M.D. DR: Rickie JOB#: [id number] CC:
[2017-11-15 04:00] VITALS: BP 134/80
[2017-11-15] MEDS: Morphine Sulfate 4mg/ml Inj IVP PRN (05:30)
[2017-11-15] MEDS: NovoLOG Insulin Flexpen SUBQ SCH ×4 (06:11→20:56)
[2017-11-15 08:00] VITALS: BP 130/78
[2017-11-15] MEDS: Eliquis 2.5mg tablet ORAL SCH ×2 (08:48→17:23)
[2017-11-15] MEDS: Flovent 110mcg Inhaler - 12gm INH SCH ×2 (08:59→19:47)
[2017-11-15] MEDS ORDERED: Aspirin Baby 81mg ORAL SCH (09:00)
[2017-11-15 10:31] LABS: BASOPHILS % (AUTO) 0.8 % (0.0-2.0); EOSINOPHILS % (AUTO) 1.4 % (0.0-3.0); HEMOGLOBIN 12.2 G/DL (12.0-16.0); LYMPHOCYTES % (AUTO) 32.4 % (20.0-45.0); MEAN CORPUSCULAR VOLUME 91 FL (80-99); MONOCYTES % (AUTO) 6.5 % (1.0-10.0); NEUTROPHILS % (AUTO) 58.9 % (45.0-75.0); PLATELET COUNT 200 K/UL (150-450); RED BLOOD COUNT 4.41 M/UL (4.20-5.40); RED CELL DISTRIBUTION WIDTH 12.9 % (11.6-14.8); WHITE BLOOD COUNT 5.9 K/UL (4.8-10.8)
[2017-11-15 11:36] LABS: ANION GAP 7 mmol/L (5-15); BLOOD UREA NITROGEN 14 mg/dL (7-18); CALCIUM 9.1 MG/DL (8.5-10.1); CARBON DIOXIDE 29 MMOL/L (21-32); CHLORIDE 103 MMOL/L (98-107); CREATININE 0.8 MG/DL (0.55-1.30); POTASSIUM 3.9 MMOL/L (3.5-5.1); SODIUM 139 MMOL/L (136-145)
[2017-11-15 12:00] VITALS: BP 149/97
--- NOTE | 2017-11-15 14:29 | Consultation ---
History of Present Illness General Date patient seen: November 14, 2017 Chief Complaint: Lower Extremity Injury Present Illness HPI 57-year-old female with past medical history of hypertension, asthma, COPD, diabetes mellitus, with left leg pain. The pt pw irritable mood, anxiety and insomnia. stated that she is always depressed and low energy. Allergies: Coded Allergies: PENICILLINS (Verified Allergy, Severe, ITCHY, 04/25/12) Medication History Scheduled Aspirin* (Aspir-Low*), 81 MG ORAL DAILY, (Reported) Atenolol* (Tenormin*), 100 MG PO DAILY, (Reported) Clonidine Hcl* (Catapres*), 0.1 MG ORAL DAILY, (Reported) Fluticasone Propionate (Flovent Hfa), 2 PUFFS INH BID, (Reported) Metformin Hcl (Metformin Hcl), 500 MG PO BID, (Reported) Quetiapine Fumarate* (Seroquel*), 100 MG ORAL DAILY, (Reported) Terbinafine Hcl* (Lamisil*), 250 MG PO DAILY, (Reported) Scheduled PRN Albuterol Sulfate* (Proair Hfa*), 2 PUFFS INH Q6H PRN for Shortness of Breath, ( Reported) Hydrocodone Bit/Acetaminophen 10-325* ([place] 10-325*), 1 TAB ORAL Q6H PRN for For Pain, (Reported) Miscellaneous Medications Phenazopyridine HCl (Azo Urinary Pain Relief), Unknown Dose PO, (Reported) Triamcinolone Acetonide (Triamcinolone Acetonide), 4 OZ TP, (Reported) Patient History Limited by: medical condition History Provided By: Patient, Medical Record, PMD Healthcare decision maker Resuscitation status Full Code Advanced Directive on File Past Medical/Surgical History Past Medical/Surgical History: (1) Arthralgia (2) Intractable pain (3) Abdominal pain (4) Abdominal pain of unknown etiology (5) Diverticulitis (6) Fall against object (7) Shoulder pain, left (8) Fall against object (9) Head contusion (10) Contusion of shoulder, right (11) Right knee sprain (12) Contusion of right hip and thigh (13) DVT (deep venous thrombosis) (14) Leg pain, left (15) COPD (chronic obstructive pulmonary disease) (16) Morbid obesity (17) HTN (hypertension) (18) DM (diabetes mellitus) (19) Hip pain, left (20) Sciatic leg pain Review of Systems Psychiatric: Reports: prior hx, anxiety, depressed feelings, emotional problems Physical Exam General Appearance: WD/WN, no apparent distress, alert Neurologic: alert, oriented x 3, responsive, depressed affect Last 24 Hour Vital Signs Date Time Temp Pulse Resp B/P (MAP) Pulse Ox O2 Delivery O2 Flow Rate FiO2 11/15/17 13:25 82 20 97 Room Air 21 11/15/17 13:19 82 20 95 Room Air 21 11/15/17 12:00 98.3 87 22 149/97 97 Room Air 98.3 11/15/17 08:49 100 130/78 11/15/17 08:00 97.9 100 21 130/78 97 Room Air 97.9 11/15/17 06:57 81 20 Room Air 21 11/15/17 06:55 81 20 98 Room Air 21 11/15/17 06:48 88 20 89 Room Air 21 11/15/17 04:00 97.7 84 21 134/80 95 Room Air 97.7 11/15/17 01:51 89 18 99 Room Air 21 11/15/17 01:45 98.4 81 22 152/94 92 Room Air 98.4 11/15/17 01:44 86 18 96 Room Air 21 11/14/17 21:00 98.9 84 19 121/68 90 98.9 11/14/17 20:33 85 18 99 Room Air 21 11/14/17 20:30 81 18 Room Air 21 11/14/17 20:26 81 18 97 Room Air 21 11/14/17 16:00 97.6 82 20 147/90 92 Room Air 97.6 Intake and Output 11/14/17 11/15/17 19:00 07:00 Intake Total 925 ml 900 ml Balance 925 ml 900 ml Intake Oral 700 ml IV Total 225 ml 900 ml # Voids 2 Laboratory Tests Test 11/15/17 10:15 White Blood Count 5.9 K/UL (4.8-10.8) Red Blood Count 4.41 M/UL (4.20-5.40) Hemoglobin 12.2 G/DL (12.0-16.0) Hematocrit 40.0 % (37.0-47.0) Mean Corpuscular Volume 91 FL (80-99) Mean Corpuscular Hemoglobin 27.6 PG (27.0-31.0) Mean Corpuscular Hemoglobin Concent 30.4 G/DL (32.0-36.0) L Red Cell Distribution Width 12.9 % (11.6-14.8) Platelet Count 200 K/UL (150-450) Mean Platelet Volume 8.2 FL (6.5-10.1) Neutrophils (%) (Auto) 58.9 % (45.0-75.0) Lymphocytes (%) (Auto) 32.4 % (20.0-45.0) Monocytes (%) (Auto) 6.5 % (1.0-10.0) Eosinophils (%) (Auto) 1.4 % (0.0-3.0) Basophils (%) (Auto) 0.8 % (0.0-2.0) Sodium Level 139 MMOL/L (136-145) Potassium Level 3.9 MMOL/L (3.5-5.1) Chloride Level 103 MMOL/L (98-107) Carbon Dioxide Level 29 MMOL/L (21-32) Anion Gap 7 mmol/L (5-15) Blood Urea Nitrogen 14 mg/dL (7-18) Creatinine 0.8 MG/DL (0.55-1.30) Estimat Glomerular Filtration Rate > 60 mL/min (>60) Glucose Level 269 MG/DL (74-106) H Calcium Level 9.1 MG/DL (8.5-10.1) Height (Feet): 5 Height (Inches): 10.00 Weight (Pounds): 506 Medications Current Medications Medications (Trade) Dose Ordered Sig/Arlen Route PRN Reason Start Time Stop Time Status Last Admin Dose Admin Acetaminophen (Tylenol) 650 mg Q4H PRN ORAL Mild Pain/Temp > 100.5 11/14/17 10:15 12/14/17 10:14 Acetaminophen/ Hydrocodone Bitart ([place] 10) 1 tab Q4H PRN ORAL Moderate Pain (Pain Scale 4-6) 11/14/17 13:00 11/21/17 12:59 Albuterol/ Ipratropium (Albuterol/ Ipratropium) 3 ml Q6HRT HHN 11/14/17 13:00 11/19/17 12:59 11/15/17 13:19 Apixaban (Eliquis) 10 mg BID ORAL 11/15/17 09:00 12/15/17 08:59 11/15/17 08:48 Atenolol (Tenormin) 100 mg DAILY ORAL 11/15/17 09:00 12/15/17 08:59 11/15/17 08:49 Dextrose (Dextrose 50%) 25 ml STAT PRN IV Hypoglycemia 11/14/17 12:30 12/14/17 12:29 Dextrose (Dextrose 50%) 50 ml STAT PRN IV Hypoglycemia 11/14/17 12:30 12/14/17 12:29 Fluticasone Propionate (Flovent 110 mcg) 2 puff TWICE A DAY INH 11/14/17 18:00 12/14/17 17:59 11/15/17 08:59 Gabapentin (Neurontin) 300 mg BEDTIME ORAL 11/15/17 21:00 12/15/17 20:59 Insulin Aspart (NovoLOG) BEFORE MEALS AND HS SUBQ 11/14/17 16:30 12/14/17 16:29 11/15/17 12:14 Morphine Sulfate (Morphine Sulfate) 4 mg Q4H PRN IVP Severe Pain (Pain Scale 7-10) 11/14/17 10:15 11/21/17 10:14 11/15/17 05:30 Quetiapine Fumarate (SEROquel) 100 mg DAILY ORAL 11/14/17 13:00 12/14/17 12:59 11/15/17 08:49 Sodium Chloride 1,000 ml @ 75 mls/hr [id number] IV 11/14/17 16:00 12/14/17 15:59 11/15/17 05:02 Terbinafine HCl (LamISIL) 250 mg DAILY ORAL 11/14/17 13:00 11/21/17 12:59 11/15/17 08:48 Assessment/Plan Status: stable, progressing Assessment/Plan MDD Anxiety d/o -dc seroquel -start Remeron 15mg qhs -provided nathan/Sydni Anaya M.D. November 15, 2017 14:29
--- NOTE | 2017-11-15 14:30 | General Progress Note ---
Assessment/Plan Status: stable, progressing Assessment/Plan MDD Anxiety d/o -dc seroquel -start Remeron 15mg qhs -provided ro/st Subjective Date patient seen: November 15, 2017 Neurologic/Psychiatric: Reports: anxiety, depressed, emotional problems Allergies: Coded Allergies: PENICILLINS (Verified Allergy, Severe, ITCHY, 04/25/12) Objective Last 24 Hour Vital Signs Date Time Temp Pulse Resp B/P (MAP) Pulse Ox O2 Delivery O2 Flow Rate FiO2 11/15/17 13:25 82 20 97 Room Air 21 11/15/17 13:19 82 20 95 Room Air 21 11/15/17 12:00 98.3 87 22 149/97 97 Room Air 98.3 11/15/17 08:49 100 130/78 11/15/17 08:00 97.9 100 21 130/78 97 Room Air 97.9 11/15/17 06:57 81 20 Room Air 21 11/15/17 06:55 81 20 98 Room Air 21 11/15/17 06:48 88 20 89 Room Air 21 11/15/17 04:00 97.7 84 21 134/80 95 Room Air 97.7 11/15/17 01:51 89 18 99 Room Air 21 11/15/17 01:45 98.4 81 22 152/94 92 Room Air 98.4 11/15/17 01:44 86 18 96 Room Air 21 11/14/17 21:00 98.9 84 19 121/68 90 98.9 11/14/17 20:33 85 18 99 Room Air 21 11/14/17 20:30 81 18 Room Air 21 11/14/17 20:26 81 18 97 Room Air 21 11/14/17 16:00 97.6 82 20 147/90 92 Room Air 97.6 Intake and Output 11/14/17 11/15/17 19:00 07:00 Intake Total 925 ml 900 ml Balance 925 ml 900 ml Intake Oral 700 ml IV Total 225 ml 900 ml # Voids 2 Laboratory Tests 11/15/17 10:15: White Blood Count 5.9, Red Blood Count 4.41, Hemoglobin 12.2, Hematocrit 40.0, Mean Corpuscular Volume 91, Mean Corpuscular Hemoglobin 27.6, Mean Corpuscular Hemoglobin Concent 30.4L, Red Cell Distribution Width 12.9, Platelet Count 200, Mean Platelet Volume 8.2, Neutrophils (%) (Auto) 58.9, Lymphocytes (%) (Auto) 32.4, Monocytes (%) (Auto) 6.5, Eosinophils (%) (Auto) 1.4, Basophils (%) (Auto ) 0.8, Sodium Level 139, Potassium Level 3.9, Chloride Level 103, Carbon Dioxide Level 29, Anion Gap 7, Blood Urea Nitrogen 14, Creatinine 0.8, Estimat Glomerular Filtration Rate > 60, Glucose Level 269H, Calcium Level 9.1 Height (Feet): 5 Height (Inches): 10.00 Weight (Pounds): 506 General Appearance: WD/WN, no apparent distress, alert Neurologic: oriented x 3, responsive, depressed affect Sydni Mariscal M.D. November 15, 2017 14:30
--- NOTE | 2017-11-15 15:15 | General Progress Note ---
Assessment/Plan Problem List: (1) Sciatic leg pain ICD Codes: M54.30 - Sciatica, unspecified side SNOMED: 23686418 (2) COPD (chronic obstructive pulmonary disease) ICD Codes: J44.9 - Chronic obstructive pulmonary disease, unspecified SNOMED: 56561837 (3) Morbid obesity ICD Codes: E66.01 - Morbid (severe) obesity due to excess calories SNOMED: 561250032, 59808991734889 (4) HTN (hypertension) ICD Codes: I10 - HTN (hypertension) SNOMED: 35188661 (5) DM (diabetes mellitus) ICD Codes: E11.9 - DM (diabetes mellitus) SNOMED: 70733475 (6) Hip pain, left ICD Codes: M25.552 - Pain in left hip SNOMED: 51461396 (7) Leg pain, left ICD Codes: M79.605 - Pain in left leg SNOMED: 698232517 (8) Dizziness ICD Codes: R42 - Dizziness and giddiness SNOMED: 970143880, 093184467 (9) DVT (deep venous thrombosis) ICD Codes: I82.409 - Acute embolism and thrombosis of unspecified deep veins of unspecified lower extremity SNOMED: 652461917 Status: stable, progressing Assessment/Plan Vascular surgery and hematology consulted D-dimer elevated. Patient unable to get venous duplex due to morbid obesity but clinically patient has severe calf tenderness and is at high risk for DVT development. Therefore, per hematology and vascular surgery rec's, will start patient on eliquis and schedule patient for outpatient venous duplex at [facility] that would accommodate patient's body habitus. Unable to get CT L spine due to patient's body habitus. Will also have CM schedule this as outpatient for patient at [facility]. Will dc gabapentin and morphine as possible cause for dizziness Check CXR PT/OT eval Continue home BP meds DENNIS Pain control and supportive care Likely DC in AM home with home health if dizziness resolves DVT Prophylaxis: patient is currently on DVT treatment Code Status: Full Hospital Classification Declaration: Based on this initial evaluation, and depending on the patient's clinical course, I anticipate that this patient will require hospitalization for 2-3 days for LLE intractable pain and close respiratory/hemodynamic monitoring. Disposition: Once the patient is stable to leave the hospital, I anticipate the patient will likely be discharged to the following environment: home with vs SNF I spent 32 minutes on this patient's case, and 22 minutes were dedicated to counseling and/or care coordination. Discussed with patient/family, nursing staff, SW/CM, vascular surgery, hematology, regarding clinical status, treatment course, and disposition planning. Time of note may not reflect time of encounter. Subjective Date patient seen: November 15, 2017 Time patient seen: 15:15 Allergies: Coded Allergies: PENICILLINS (Verified Allergy, Severe, ITCHY, 04/25/12) Subjective - unable to perform vascular studies or CT L spine because of patient's body habitus - seen by hematology and vascular surgery - started on DVT tx - continues to report left lower extremity pain. also reports new onset dizziness and cough today. states it started after taking gabapentin. denies cp , sob, n/v, abdominal pain. AF, HDS Objective Last 24 Hour Vital Signs Date Time Temp Pulse Resp B/P (MAP) Pulse Ox O2 Delivery O2 Flow Rate FiO2 11/15/17 13:25 82 20 97 Room Air 21 11/15/17 13:19 82 20 95 Room Air 21 11/15/17 12:00 98.3 87 22 149/97 97 Room Air 98.3 11/15/17 08:49 100 130/78 11/15/17 08:00 97.9 100 21 130/78 97 Room Air 97.9 11/15/17 06:57 81 20 Room Air 21 11/15/17 06:55 81 20 98 Room Air 21 11/15/17 06:48 88 20 89 Room Air 21 11/15/17 04:00 97.7 84 21 134/80 95 Room Air 97.7 11/15/17 01:51 89 18 99 Room Air 21 11/15/17 01:45 98.4 81 22 152/94 92 Room Air 98.4 11/15/17 01:44 86 18 96 Room Air 21 11/14/17 21:00 98.9 84 19 121/68 90 98.9 11/14/17 20:33 85 18 99 Room Air 21 11/14/17 20:30 81 18 Room Air 21 11/14/17 20:26 81 18 97 Room Air 21 11/14/17 16:00 97.6 82 20 147/90 92 Room Air 97.6 Intake and Output 11/14/17 11/15/17 19:00 07:00 Intake Total 925 ml 900 ml Balance 925 ml 900 ml Intake Oral 700 ml IV Total 225 ml 900 ml # Voids 2 Laboratory Tests 11/15/17 10:15: White Blood Count 5.9, Red Blood Count 4.41, Hemoglobin 12.2, Hematocrit 40.0, Mean Corpuscular Volume 91, Mean Corpuscular Hemoglobin 27.6, Mean Corpuscular Hemoglobin Concent 30.4L, Red Cell Distribution Width 12.9, Platelet Count 200, Mean Platelet Volume 8.2, Neutrophils (%) (Auto) 58.9, Lymphocytes (%) (Auto) 32.4, Monocytes (%) (Auto) 6.5, Eosinophils (%) (Auto) 1.4, Basophils (%) (Auto ) 0.8, Sodium Level 139, Potassium Level 3.9, Chloride Level 103, Carbon Dioxide Level 29, Anion Gap 7, Blood Urea Nitrogen 14, Creatinine 0.8, Estimat Glomerular Filtration Rate > 60, Glucose Level 269H, Calcium Level 9.1 Height (Feet): 5 Height (Inches): 10.00 Weight (Pounds): 506 General Appearance: no apparent distress, alert, morbidly obese EENT: PERRL/EOMI, normal ENT inspection Neck: non-tender, normal alignment, supple Cardiovascular: normal peripheral pulses, normal rate, regular rhythm Respiratory/Chest: chest wall non-tender, lungs clear, normal breath sounds Abdomen: normal bowel sounds, non tender, soft Extremities: calf tenderness 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 3/5 strength to LLE and 4/5 strength to RLE Araceli Victor NP November 15, 2017 15:15
[2017-11-15 16:00] VITALS: BP 150/98
[2017-11-15 20:00] VITALS: BP 146/81
[2017-11-15] MEDS: HYDROcodone/Acetamin 10/325 tab ORAL PRN (21:05)
--- NOTE | 2017-11-15 21:38 | Diagnostic Imaging Report ---
PROCEDURE: FILM CXR 1 VIEW HISTORY: 57-year-old female with shortness of breath COMPARISON: None TECHNIQUE: Frontal view of the chest was obtained. FINDINGS: Limited by technique and body habitus. Cardiomediastinal silhouette is within normal limits. Bibasilar atelectasis. Degenerative changes of the spine. IMPRESSION: Bibasilar atelectasis.
[2017-11-16] VITALS: BP 158/93
[2017-11-16] MEDS: Albuterol/Ipratropium 3ml neb HHN SCH ×3 (00:03→13:00)
[2017-11-16 04:00] VITALS: BP 152/97
[2017-11-16] MEDS: HYDROcodone/Acetamin 10/325 tab ORAL PRN (04:01)
[2017-11-16] MEDS: NovoLOG Insulin Flexpen SUBQ SCH ×2 (06:12→12:28)
[2017-11-16 08:00] VITALS: BP 140/88
[2017-11-16 08:33] LABS: BASOPHILS % (AUTO) 0.9 % (0.0-2.0); EOSINOPHILS % (AUTO) 1.7 % (0.0-3.0); HEMATOCRIT 40.4 % (37.0-47.0); HEMOGLOBIN 12.5 G/DL (12.0-16.0); LYMPHOCYTES % (AUTO) 29.1 % (20.0-45.0); MEAN CORPUSCULAR VOLUME 91 FL (80-99); NEUTROPHILS % (AUTO) 62.3 % (45.0-75.0); PLATELET COUNT 207 K/UL (150-450); RED BLOOD COUNT 4.46 M/UL (4.20-5.40); WHITE BLOOD COUNT 6.7 K/UL (4.8-10.8)
[2017-11-16 08:44] LABS: ANION GAP 7 mmol/L (5-15); BLOOD UREA NITROGEN 12 mg/dL (7-18); CALCIUM 9.4 MG/DL (8.5-10.1); CARBON DIOXIDE 30 MMOL/L (21-32); CHLORIDE 105 MMOL/L (98-107); CREATININE 0.8 MG/DL (0.55-1.30); POTASSIUM 3.7 MMOL/L (3.5-5.1); SODIUM 142 MMOL/L (136-145)
[2017-11-16] MEDS: Eliquis 2.5mg tablet ORAL SCH (09:13)
[2017-11-16] MEDS: Flovent 110mcg Inhaler - 12gm INH SCH (09:13)
[2017-11-16] MEDS: oxyCODONE HCL/Acetaminophen 5/325mg ORAL PRN ×2 (09:14→13:51)
[2017-11-16 12:00] VITALS: BP 153/96
--- NOTE | 2017-11-16 12:37 | General Progress Note ---
Assessment/Plan Status: stable Assessment/Plan 1. Elevated D-dimer ---> potentially false-positive, slightly elevated at this time, concerning for dvt until proven otherwise ==> started on apixaban continue x 3 months --> once outpatient finish a 3 month course 2. Deep venous thrombosis (high prob) with sciatica of lower extremity apixaban as outpatient 3. Hyperglycemia ---> Blood sugar goal between 80 and 120. 4. Hypertension ---> on aspirin as well as blood pressure control. Continue to closely monitor. 5. Morbidly obese Subjective Date patient seen: November 15, 2017 Allergies: Coded Allergies: PENICILLINS (Verified Allergy, Severe, ITCHY, 04/25/12) All Systems: reviewed and negative except above Subjective Patient is awake and resting in bed. No s/s of acute medical distress Objective Last 24 Hour Vital Signs Date Time Temp Pulse Resp B/P (MAP) Pulse Ox O2 Delivery O2 Flow Rate FiO2 11/16/17 10:13 97.5 11/16/17 09:14 97.5 11/16/17 09:13 99 140/88 11/16/17 08:00 97.5 99 19 140/88 95 Room Air 97.5 11/16/17 07:33 Room Air 11/16/17 07:33 Room Air 11/16/17 04:00 98.4 101 22 152/97 95 98.4 11/16/17 00:11 89 20 97 Room Air 21 11/16/17 00:03 85 20 95 Room Air 21 11/16/17 00:00 98.7 107 22 158/93 96 98.7 11/15/17 20:05 85 20 97 Room Air 21 11/15/17 20:00 98.1 94 20 146/81 96 98.1 11/15/17 19:53 74 20 93 Room Air 21 11/15/17 16:00 98.4 85 20 150/98 99 Room Air 98.4 11/15/17 13:25 82 20 97 Room Air 21 11/15/17 13:19 82 20 95 Room Air 21 Intake and Output 11/15/17 11/16/17 19:00 07:00 Intake Total 1860 ml 645 ml Balance 1860 ml 645 ml Intake Oral 960 ml 420 ml IV Total 900 ml 225 ml # Voids 4 4 # Bowel Movements 1 Laboratory Tests 11/16/17 08:20: White Blood Count 6.7, Red Blood Count 4.46, Hemoglobin 12.5, Hematocrit 40.4, Mean Corpuscular Volume 91, Mean Corpuscular Hemoglobin 28.0, Mean Corpuscular Hemoglobin Concent 30.9L, Red Cell Distribution Width 13.0, Platelet Count 207, Mean Platelet Volume 8.1, Neutrophils (%) (Auto) 62.3, Lymphocytes (%) (Auto) 29.1, Monocytes (%) (Auto) 6.0, Eosinophils (%) (Auto) 1.7, Basophils (%) (Auto ) 0.9, Sodium Level 142, Potassium Level 3.7, Chloride Level 105, Carbon Dioxide Level 30, Anion Gap 7, Blood Urea Nitrogen 12, Creatinine 0.8, Estimat Glomerular Filtration Rate > 60, Glucose Level 241H, Calcium Level 9.4 Height (Feet): 5 Height (Inches): 10.00 Weight (Pounds): 506 General Appearance: no apparent distress EENT: normal ENT inspection Neck: supple Cardiovascular: normal rate Respiratory/Chest: chest wall non-tender Phani Bradford MD November 16, 2017 12:37
[2017-11-16] MEDS ORDERED: PERCOCET1 TAB ORAL (12:44)
[2017-11-16] MEDS ORDERED: ELIQUIS2.5 MG ORAL (12:44)
--- NOTE | 2017-11-16 12:44 | Discharge Instructions ---
Discharge Instructions Discharge Instructions Follow up with: Venous duplex BLE and CT L spine as outpatient at [facility] Reminder Report to your physician any weight gain of 5 pounds or more in one week. Araceli Victor NP November 16, 2017 12:44
[2017-11-16 16:00] VITALS: BP 164/107
--- NOTE | 2017-11-16 16:08 | General Progress Note ---
Assessment/Plan Assessment/Plan 1. 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 Deep venous thrombosis (high prob) with sciatica of lower extremity apixaban as outpatient 3. Hyperglycemia ---> Blood sugar goal between 80 and 120. 4. Hypertension ---> on aspirin as well as blood pressure control. Continue to closely monitor. 5. Morbidly obese Subjective Constitutional: Denies: no symptoms, chills, diaphoresis, fever, malaise, weakness, other HEENT: Denies: no symptoms, eye pain, blurred vision, tearing, double vision, ear pain, ear discharge, nose pain, nose congestion, throat pain, throat swelling, mouth pain, mouth swelling, other Cardiovascular: Denies: no symptoms, chest pain, edema, irregular heart rate, lightheadedness, palpitations, syncope, other Respiratory: Denies: no symptoms, cough, orthopnea, shortness of breath, SOB with excertion, SOB at rest, sputum, stridor, wheezing, other Gastrointestinal/Abdominal: Denies: no symptoms, abdomen distended, abdominal pain, black stools, tarry stools, blood in stool, constipated, diarrhea, difficulty swallowing, nausea, poor appetite, poor fluid intake, rectal bleeding , vomiting, other Genitourinary: Denies: no symptoms, burning, discharge, frequency, flank pain, hematuria, incontinence, pain, urgency, other Neurologic/Psychiatric: Denies: no symptoms, anxiety, depressed, emotional problems, headache, numbness, paresthesia, pre-existing deficit, seizure, tingling, tremors, weakness, other Endocrine: Denies: no symptoms, excessive sweating, flushing, intolerance to cold, intolerance to heat, increased hunger, increased thirst, increased urine, unexplained weight gain, unexplained weight loss, other Hematologic/Lymphatic: Denies: no symptoms, anemia, easy bleeding, easy bruising, other Allergies: Coded Allergies: PENICILLINS (Verified Allergy, Severe, ITCHY, 04/25/12) Subjective no s/s distress, on apixaban Objective Last 24 Hour Vital Signs Date Time Temp Pulse Resp B/P (MAP) Pulse Ox O2 Delivery O2 Flow Rate FiO2 11/16/17 14:50 98.2 11/16/17 13:51 98.2 11/16/17 13:16 Room Air 11/16/17 13:16 Room Air 11/16/17 12:00 98.2 80 21 153/96 95 Room Air 98.2 11/16/17 09:14 97.5 11/16/17 09:13 99 140/88 11/16/17 08:00 97.5 99 19 140/88 95 Room Air 97.5 11/16/17 07:33 Room Air 11/16/17 07:33 Room Air 11/16/17 04:00 98.4 101 22 152/97 95 98.4 11/16/17 00:11 89 20 97 Room Air 21 11/16/17 00:03 85 20 95 Room Air 21 11/16/17 00:00 98.7 107 22 158/93 96 98.7 11/15/17 20:05 85 20 97 Room Air 21 11/15/17 20:00 98.1 94 20 146/81 96 98.1 11/15/17 19:53 74 20 93 Room Air 21 Intake and Output 11/15/17 11/16/17 19:00 07:00 Intake Total 1860 ml 682 ml Balance 1860 ml 682 ml Intake Oral 960 ml 420 ml IV Total 900 ml 262 ml # Voids 4 4 # Bowel Movements 1 Laboratory Tests 11/16/17 08:20: White Blood Count 6.7, Red Blood Count 4.46, Hemoglobin 12.5, Hematocrit 40.4, Mean Corpuscular Volume 91, Mean Corpuscular Hemoglobin 28.0, Mean Corpuscular Hemoglobin Concent 30.9L, Red Cell Distribution Width 13.0, Platelet Count 207, Mean Platelet Volume 8.1, Neutrophils (%) (Auto) 62.3, Lymphocytes (%) (Auto) 29.1, Monocytes (%) (Auto) 6.0, Eosinophils (%) (Auto) 1.7, Basophils (%) (Auto ) 0.9, Sodium Level 142, Potassium Level 3.7, Chloride Level 105, Carbon Dioxide Level 30, Anion Gap 7, Blood Urea Nitrogen 12, Creatinine 0.8, Estimat Glomerular Filtration Rate > 60, Glucose Level 241H, Calcium Level 9.4 Height (Feet): 5 Height (Inches): 10.00 Weight (Pounds): 506 General Appearance: alert EENT: TMs normal Neck: normal alignment Cardiovascular: regular rhythm Respiratory/Chest: normal breath sounds Abdomen: no organomegaly Extremities: non-tender Edema: 1+ Leg (L), 1+ Leg (R) Edema: mild edema Neurologic: alert Skin: warm/dry Objective swelling of lower ext Phani Bradford MD November 16, 2017 16:08
--- NOTE | 2017-11-16 23:06 | General Progress Note ---
Assessment/Plan Status: stable, progressing Assessment/Plan MDD Anxiety d/o -dc seroquel -start Remeron 15mg qhs -provided ro/st Subjective Date patient seen: November 16, 2017 Neurologic/Psychiatric: Reports: anxiety, depressed, emotional problems Allergies: Coded Allergies: PENICILLINS (Verified Allergy, Severe, ITCHY, 04/25/12) Objective Last 24 Hour Vital Signs Date Time Temp Pulse Resp B/P (MAP) Pulse Ox O2 Delivery O2 Flow Rate FiO2 11/16/17 16:00 98.0 81 21 164/107 95 Room Air 98.0 11/16/17 14:50 98.2 11/16/17 13:51 98.2 11/16/17 13:16 Room Air 11/16/17 13:16 Room Air 11/16/17 12:00 98.2 80 21 153/96 95 Room Air 98.2 11/16/17 09:14 97.5 11/16/17 09:13 99 140/88 11/16/17 08:00 97.5 99 19 140/88 95 Room Air 97.5 11/16/17 07:33 Room Air 11/16/17 07:33 Room Air 11/16/17 04:00 98.4 101 22 152/97 95 98.4 11/16/17 00:11 89 20 97 Room Air 21 11/16/17 00:03 85 20 95 Room Air 21 11/16/17 00:00 98.7 107 22 158/93 96 98.7 Intake and Output 11/15/17 11/16/17 19:00 07:00 Intake Total 1860 ml 682 ml Balance 1860 ml 682 ml Intake Oral 960 ml 420 ml IV Total 900 ml 262 ml # Voids 4 4 # Bowel Movements 1 Laboratory Tests 11/16/17 08:20: White Blood Count 6.7, Red Blood Count 4.46, Hemoglobin 12.5, Hematocrit 40.4, Mean Corpuscular Volume 91, Mean Corpuscular Hemoglobin 28.0, Mean Corpuscular Hemoglobin Concent 30.9L, Red Cell Distribution Width 13.0, Platelet Count 207, Mean Platelet Volume 8.1, Neutrophils (%) (Auto) 62.3, Lymphocytes (%) (Auto) 29.1, Monocytes (%) (Auto) 6.0, Eosinophils (%) (Auto) 1.7, Basophils (%) (Auto ) 0.9, Sodium Level 142, Potassium Level 3.7, Chloride Level 105, Carbon Dioxide Level 30, Anion Gap 7, Blood Urea Nitrogen 12, Creatinine 0.8, Estimat Glomerular Filtration Rate > 60, Glucose Level 241H, Calcium Level 9.4 Height (Feet): 5 Height (Inches): 10.00 Weight (Pounds): 506 General Appearance: no apparent distress, alert Neurologic: oriented x 3, responsive Sydni Mariscal M.D. November 16, 2017 23:06
--- NOTE | 2017-11-21 23:12 | Discharge Summary ---
Discharge Summary Hospital Course Date of Admission November 14, 2017 at 01:18 Date of Discharge November 16, 2017 at 17:05 Admitting Diagnosis DVT HPI Leonor Real is a 57 year old female who was admitted on November 14, 2017 at 01:18 for Deep Vein Thrombosis 57 y/o female with a PMH of morbid obesity, HTN, COPD from former smoking, T2DM presented to the ED after 4 days of severe left lower extremity pain, numbness, and tingling. Patient states that she hit her left buttocks against the bed frame and the next morning has had severe left lower extremity weakness, calf tenderness and radiculopathy. Patient states nothing has helped relieve the pain and states that she progressively had had difficulty walking. Denies chest pain, sob, n/v, abdominal pain. Denies urinary or bowel incontinence. Consultations Vascular surgeon, Dr. Luo Psychiatry, Dr. Mariscal Procedures none Hospital Course Patient was admitted for severe left lower extremity leg pain. Venous duplex was unable to be performed due to patient being overweight and neither was a CT L spine to r/o lumbar radiculopathy/stenosis. Vascular surgery was consulted and it was recommended to start the patient on treatment for DVT and have the patient perform the venous ultrasound and CT L spine as outpatient at [facility] where they have the capabilities to perform there for her stature. Patient was therefore started on eliquis. Patient was also evaluated by PT and worked well with PT. Patient's stay was complicated by new onset dizziness. Blood pressure was stable. Patient was given IVF and dizziness resolved. Patient was therefore discharged to home with home health for PT and advised to follow up with outpatient diagnostic services with [facility]. Discharge Medications New Medications: Apixaban (Eliquis) 2.5 Mg Tablet 5 MG ORAL BID for 90 Days, #180 TAB Oxycodone/Acetaminophen (Oxycodone-Acetaminophen 5-325) 1 Each Tablet 1 TAB ORAL Q4H PRN, #40 TAB Continued Medications: Albuterol Sulfate* (Proair Hfa*) 8.5 Gm Hfa.aer.ad 2 PUFFS INH Q6H PRN for Shortness of Breath, #8.5 GM 0 Refills (This prescription has been renewed) Aspirin* (Aspir-Low*) 81 Mg Tablet. 81 MG ORAL DAILY, TAB (This prescription has been renewed) Atenolol* (Tenormin*) 100 Mg Tablet 100 MG PO DAILY, #10 TAB (This prescription has been renewed) Take 1 tablet by mouth every day. Clonidine Hcl* (Catapres*) 0.1 Mg Tablet 0.1 MG ORAL DAILY, TAB Fluticasone Propionate (Flovent Hfa) 10.6 Gm Aer.w.adap 2 PUFFS INH BID, #1 EA 0 Refills (This prescription has been renewed) Hydrocodone Bit/Acetaminophen 10-325* ([place] 10-325*) 1 Each Tablet 1 TAB ORAL Q6H PRN for For Pain, #10 TAB 0 Refills PRN PAIN Metformin Hcl (Metformin Hcl) 500 Mg Tablet 500 MG PO BID (This prescription has been renewed) Quetiapine Fumarate* (Seroquel*) 100 Mg Tablet 100 MG ORAL DAILY, TAB Terbinafine Hcl* (Lamisil*) 250 Mg Tablet 250 MG PO DAILY, TAB (This prescription has been renewed) Triamcinolone Acetonide (Triamcinolone Acetonide) 80 Gm Cream..g. 4 OZ TP, GM (This prescription has been renewed) Discontinued Medications: Phenazopyridine HCl (Azo Urinary Pain Relief) Unknown Strength Tablet Unknown Dose PO, TAB Discharge Condition Upon Discharge: stable Discharge Disposition Patient was discharged to Home with Home Health(06) Discharge Diagnoses: (1) Morbid obesity (2) HTN (hypertension) (3) DM (diabetes mellitus) (4) Hip pain, left (5) Sciatic leg pain (6) DVT (deep venous thrombosis) (7) Dizziness Discharge Instructions Discharge Instructions Follow up with: Venous duplex BLE and CT L spine as outpatient at [facility] Araceli Victor NP November 21, 2017 23:12
== END 2017-11-16 17:05 | disposition home health service (06) | DRG 300 ==
LOC: EMR 22:06 → 4E 11-14 01:18 → EDBEDREQ 11-14 02:20 → 4E 11-14 10:16
DX: I82.402 Acute embolism and thrombosis of unspecified deep veins of left lower extremity (principal); Z68.45 Body mass index [BMI] 70 or greater, adult; R73.9 Hyperglycemia, unspecified; I10 Essential (primary) hypertension; E66.01 Morbid (severe) obesity due to excess calories; J44.9 Chronic obstructive pulmonary disease, unspecified; E11.9 Type 2 diabetes mellitus without complications; Z88.0 Allergy status to penicillin; F41.9 Anxiety disorder, unspecified; G47.00 Insomnia, unspecified; Z91.81 History of falling; F32.9 Major depressive disorder, single episode, unspecified; R42 Dizziness and giddiness; M25.552 Pain in left hip
CPT/HCPCS: 36415; 71045; 73502; 80048; 82962; 85025; 85379; 94640; 94664; 99285; J1815; J7620